=== PATIENT | male | born 1955 | race Two or more races ===

== ENCOUNTER 2024-08-19 08:40 | Inpatient (IN) | payer MEDICARE, SELFPAY ==
[2024-08-18] VITALS (7 sets, daily range): BP systolic 125–170; BP diastolic 61–97; BMI 33.4
[2024-08-18 09:05] LABS: % Basophils 0.8 % (0-2); % Eosinophils 1.8 % (0-6); % Immature Granulocytes 0.5 % (0-0.5); % Lymphocytes 6.1 % (20.5-51.1); % Monocytes 8.2 % (1.7-9.3); % Neutrophils 82.6 % (42.2-75.2); Absolute Basophils 0.1 10^3/uL (0-0.2); Absolute Eosinophils 0.2 10^3/uL (0-0.7); Absolute Immature Granulocytes 0.1 10^3/uL (0-0.05); Absolute Lymphocytes 0.7 10^3/uL (1.2-3.4); Absolute Neutrophils 9.7 10^3/uL (1.4-6.5); Hemoglobin 14.5 g/dL (13.0-18.0); Mean Corp Hgb Conc. 34.5 g/dL (33.0-37.0); Mean Corpuscular Hgb 30.9 pg (27.0-31.0); Mean Corpuscular Volume 89.4 fL (80.0-94.0); Mean Platelet Volume 9.6 fL (7.4-10.4); Nucleated Red Blood Cells % 0 % (-); Platelet Count 256 10^3/uL (130-400); Red Cell Dist. Width 12.6 % (11.5-14.5); White Blood Cell Count 11.7 10^3/uL (4.8-10.8)
[2024-08-18 09:18] LABS: ALT (SGPT) 20 U/L (0-50); AST (SGOT) 25 U/L (17-59); Albumin 4.3 g/dl (3.5-5.0); Alkaline Phosphatase 38 U/L (38-126); Blood Urea Nitrogen 10 mg/dl (9-20); Calcium 9.4 mg/dl (8.4-10.2); Carbon Dioxide 26 mmol/L (22-30); Chloride 108 mmol/L (98-107); Glucose 138 mg/dl (70-99); Potassium 3.7 mmol/L (3.5-5.1); Sodium 141 mmol/L (135-145); Total Bilirubin 2.9 mg/dl (0.2-1.3); Total Protein 7.2 g/dl (6.3-8.2); eGFR > 60.00
[2024-08-18 09:19] LABS: COVID-19 Antigen Negative (Negative)
--- NOTE | 2024-08-18 09:52 | ED.GENMED ---
History of Present Illness
General
Chief Complaint: Breathing Problem
Time Seen by Provider: 08/18/24 09:51
History of Present Illness
History of Present Illness:
TIME OF INITIAL ENCOUNTER: 9:55 AM
HPI: The patient presents with shortness of breath. His lowest room air sat at home on a portable meter was 89%. He states that he had pneumonia about 4 months ago. He went to urgent care earlier and they referred him here for further evaluation.
He is currently afebrile. He has minimal lower extremity edema which is chronic for him. He is not a smoker.
EXAM:
GENERAL: Well appearing in no significant distress
HEENT: Moist oral mucosa
CARDIOVASCULAR: No murmurs, normal heart rate, regular rhythm, No chest wall tenderness
PULMONARY: Minimal increased work of breathing but no significant conversational dyspnea, there is markedly decreased breath sounds with wheeze
ABDOMEN: Soft with no peritoneal signs, no tenderness
NEUROLOGIC: Good strength all extremities, no coordination deficits
PSYCHIATRIC: Appropriate mental status, normal insight and judgement
EXTREMITIES: Nontender, 1+ bilateral lower extremity edema, moves all extremities equally
SKIN: No rash, no lesions
NUMBER AND COMPLEXITY OF PROBLEMS ADDRESSED AT THE ENCOUNTER
� Chronic conditions affecting care: High blood pressure, hyperlipidemia
� Acute Exacerbation and/or Progression of Chronic Illness: This is an acute problem
� Differential Diagnosis includes: Reactive airway disease, bronchitis, pneumonia not seen on x-ray
AMOUNT AND/OR COMPLEXITY OF DATA TO BE REVIEWED AND ANALYZED
� I performed an independent evaluation of and my interpretation is:
EKG: Sinus 89, normal axis, nonspecific ST abnormality
CT:
X-rays: Chest x-ray clear
Laboratory Studies: White count 11.7, hemoglobin normal, total bili 2 with no old to compare but normal transaminases and alk phos .9
Other:
� Review of other/old records: No old records available for review
� Clinical information was obtained by an independent historian: I spoke to his cousin at bedside
� Prescriptions/Medications Considered but not given:
� Further testing considered but not performed:
RISK OF COMPLICATIONS AND/OR MORBIDITY OR MORTALITY OF PATIENT MANAGEMENT
� Social determinants of health affecting care: Lives at home, he is not a smoker
� Discussion with other providers: Dr. Huffman for admission
� Escalation of care including admission/observation vs risk of discharge considered: The patient presents with shortness of breath and is wheezing on exam. He has decreased breath sounds. Will give IV steroids and DuoNebs and
reassess. His room air sats have been hovering around 92%.
ANY OTHER UPDATES:
On reassessment, the patient's wheeze persists and sats still hover around 90 to 92% with a good waveform. Doubt PE as he has marked wheeze that is persisting. I have also tried magnesium.
Phy Exam
Physical Exam
Physical Exam:
See HPI
Scores
Heart Failure Risk
Heart Failure Risk Score: Not Applicable
Course
Orders/Labs/Results
Orders:
Orders
08/18/24 08:49
Electrocardiogram (*1) Urgent
Reason for Study: Shortness of Breath
EKG- Treatment ONCE
Chest [CR Chest - 2 Views ] Urgent
Comment:
Reason For Exam: SOB
08/18/24 08:56
COVID-19 Antigen Urgent
Source: Nasal Swab
Complete Blood Count/With Diff Urgent
Comprehensive Metabolic Panel Urgent
Influenza A+B Rapid Molecular Urgent
STEFANO Source: Nasal Swab
Specimen Description:
08/18/24 10:04
Ipratropium/Albuterol Sulfate [Duoneb] 3 ml INH R NOW STA
Ipratropium/Albuterol Sulfate [Duoneb] 3 ml INH R NOW STA
MethylPREDNISolone PF [Solu-Medrol Pf] 125 mg IV NOW STA
08/18/24 11:37
Ipratropium/Albuterol Sulfate [Duoneb] 3 ml INH R NOW STA
08/18/24 11:39
Magnesium Sulfate 2 Gram/50 ml [Magnesium Sulfate] 2 gram in 50 ml IV NOW
08/18/24 12:09
Admit/Transfer Patient As Directed
Co-Sign Provider:
Level of Care: Observation services
Assign to:: Medical/Surgical
Physician / Group: neftaly
Diagnosis: acute bronchitis
08/18/24 12:10
Code Status As Directed
Resuscitation Status: Full Code
PRN Pain Medication Management As Directed
May give lesser potent ordered pain med per pt: Yes
preference::
Protocol:: Medication orders for pain may be administered in a
manner that supports deferring to patient preference
when the pt is:
- Requesting an ordered lesser potent pain medication.
Least to most potent pain medications are defined
as: acetaminophen < NSAID < tramadol < opioids
(morphine, oxycodone, hydromorphone).
- Requesting a lesser dose of the same medication IF
ORDERED.
- Requesting a less intrusive route of administration
if both routes are prescribed by the provider (PO <
IV).
Abnormal Lab Results
08/18/24
08:56
WBC 11.7 H 10^3/uL
(4.8-10.8)
Abs Immat Gran (auto) 0.1 H 10^3/uL
(0-0.05)
Absolute Neuts (auto) 9.7 H 10^3/uL
(1.4-6.5)
Absolute Lymphs (auto) 0.7 L 10^3/uL
(1.2-3.4)
Absolute Monos (auto) 1.0 H 10^3/uL
(0.1-0.6)
Neutrophils % 82.6 H %
(42.2-75.2)
Lymphocytes % 6.1 L %
(20.5-51.1)
Chloride 108 H mmol/L
(98-107)
Glucose 138 H mg/dl
(70-99)
Total Bilirubin 2.9 H mg/dl
(0.2-1.3)
08/18/24 08:56
08/18/24 08:56
Vital Signs
Initial and Last Documented VS:
Initial Vital Signs
Temp Pulse Resp BP Pulse Ox
36.7 C 102 2 155/97 91
08/18/24 08:46 08/18/24 08:46 08/18/24 08:46 08/18/24 08:46 08/18/24 08:46
Last Documented Vital Signs
Temp Pulse Resp BP Pulse Ox
36.7 C 92 16 170/91 91
08/18/24 08:46 08/18/24 11:17 08/18/24 11:17 08/18/24 11:17 08/18/24 11:17
*Critical Care Note
Total Time (30-74mins, 75-104mins- exclusive of procedures): Not Applicable
ED Attending Note
-
Portions of this chart may have been created with voice recognition software.� Occasional wrong word or��sound alike� substitutions may have occurred due to the inherent limitations of voice recognition software.
Discharge Plan
Departure
Patient Disposition: Admit
Date of Disposition: 08/18/24
Time of Disposition: 11:36
Presentation/result/management discussed w/ accepting MD/DO: Hospitalist
Discharge Problem:
RAD (reactive airway disease) with wheezing
Interventions
Interventions:
*Risk Screen - Suicide Last Done: 08/18/24 08:46
*General Assessment Last Done: 08/18/24 08:46
*Neglect/Abuse Screening Last Done: 08/18/24 10:02
*ED- Fall Risk Assessment Last Done: 08/18/24 10:01
*ED COVID-19 Vaccine History Last Done: 08/18/24 10:01
ED- Cardiac Assessment Last Done: 08/18/24 10:02
ED- Pulmonary Assessment Last Done: 08/18/24 10:02
[2024-08-18] MEDS: DUONEB 3 ML INH ×5 (10:12→19:37)
[2024-08-18] MEDS: SOLU-MEDROL PF 125 MG IV (10:16)
[2024-08-18] MEDS: MAGNESIUM SULFATE 50 IV (11:45)
--- NOTE | 2024-08-18 12:12 | HPS.HSE ---
Family Physician
-
Family Physician: Jaya Aguilar
Chief Complaint
-
acute bronchitis
History of Present Illness
69-year-old male past medical history of mild seasonal allergies, hypertension, hyperlipidemia presenting with shortness of breath, productive cough, chest tightness since yesterday. Had low-grade fever 100.5 yesterday. He had a oxygen saturation
of 89% on home portable meter. Has some nasal congestion. No sore throat. He had pneumonia 4 months ago treated as outpatient. He has some chronic lower extremity edema which is stable.
No history of asthma or COPD or smoking. No alcohol use.
Medical History
Past Medical History
Past Medical History: Reports Other (mild seasonal allergies, hypertension, hyperlipidemia)
Past Surgical History: Reports Other (Rotator cuff surgery)
Social History
Tobacco: Non-smoker
Alcohol: None
Drug: None
Family History
Family History: Not pertinent
Allergies / Home Medications
Allergies reflects when Allergies were last updated in [employer].
Home Medications with original date entered in [employer]
Allergy/Medication List:
Allergies
Allergy/AdvReac Type Severity Reaction Status Date / Time
No Known Allergies Allergy Unverified 08/18/24 08:46
Home Medications
atorvastatin 20 mg tablet 20 mg PO DAILY 08/18/24
lisinopril 10 mg tablet 10 mg PO DAILY 08/18/24
Review of Systems
-
Constitutional: Reports No Symptoms
EENT: Reports No Symptoms
Respiratory: Reports See HPI
Cardiac: Reports No Symptoms
Abdomen/GI: Reports No Symptoms
: Reports No Symptoms
Musculoskeletal: Reports No Symptoms
Skin: Reports No Symptoms
Neurological: Reports No Symptoms
Endocrine: Reports No Symptoms
Hematologic/Lymphatic: Reports No Symptoms
Psych: Reports No Symptoms
Physical Exam
Vital Signs
Vital Signs
Temp Pulse Resp BP Pulse Ox
98.1 F 92 16 170/91 91
08/18/24 08:46 08/18/24 11:17 08/18/24 11:17 08/18/24 11:17 08/18/24 11:17
Physical Exam
General: Well Developed, Well Nourished and No Apparent Distress
HEENT: NormoCephalic, Moist mucous membranes and Atraumatic
Respiratory: Wheezes and Rhonchi
Cardiac: S1/S2 and Regular Rhythm; No Murmur or Rub
GI: Soft, Non Tender, Non Distended and Normal Bowel Sounds; No Organomegaly
Rectal: Deferred by Provider
Musculoskeletal: No Clubbing, No Cyanosis and No Edema
Skin: No Rash
Neuro: Nonfocal/grossly intact
Laboratory Results
-
08/18/24 08:56
08/18/24 08:56
Laboratory Results
Total Bilirubin 2.9 mg/dl (0.2-1.3) H 08/18/24 08:56
AST 25 U/L (17-59) 08/18/24 08:56
ALT 20 U/L (0-50) 08/18/24 08:56
Alkaline Phosphatase 38 U/L (38-126) 08/18/24 08:56
Data Reviewed
-
Lab Data: Labs Reviewed by me
Old Records: Reviewed
Impression/Plan
-
IMPRESSION:
PLAN:
# Acute bronchitis
-Severe rhonchi/wheezing on examination bilaterally
-Patient with leukocytosis, low-grade fever yesterday
- Chest x-ray shows no acute process
- Given DuoNebs, methylprednisolone and magnesium in ER
- Continue DuoNebs every 6 hours, dexamethasone 4 mg every 12, start azithromycin
History of mild seasonal allergies
Essential hypertension
- Continue lisinopril
Hyperlipidemia
- Continue statin
Full code
DVT prophylaxis�heparin
Regular diet
[2024-08-18] MEDS: ZITHROMAX 500 MG PO (14:45)
[2024-08-18] MEDS: DECADRON 4 MG IV (19:52)
[2024-08-18] MEDS: HEPARIN 5000 UNITS SC (19:56)
[2024-08-19 07:45] VITALS: BP 156/80
[2024-08-19] MEDS: STERILE WATER FOR INJECTION 10 ML IV (07:50)
[2024-08-19] MEDS: ROCEPHIN 1000 MG IV (07:50)
[2024-08-19] MEDS: ZITHROMAX 500 MG PO (07:50)
[2024-08-19] MEDS: LIPITOR 20 MG PO (07:51)
[2024-08-19] MEDS: DECADRON 4 MG IV ×2 (07:51→21:42)
[2024-08-19] MEDS: ZESTRIL 10 MG PO (07:51)
[2024-08-19] MEDS: HEPARIN 5000 UNITS SC ×2 (07:51→21:41)
[2024-08-19 07:53] LABS: % Basophils 0.3 % (0-2); % Immature Granulocytes 0.5 % (0-0.5); % Lymphocytes 9.6 % (20.5-51.1); % Monocytes 8.7 % (1.7-9.3); % Neutrophils 80.9 % (42.2-75.2); Absolute Lymphocytes 0.7 10^3/uL (1.2-3.4); Absolute Monocytes 0.6 10^3/uL (0.1-0.6); Hematocrit 40.5 % (39.0-52.0); Hemoglobin 14.1 g/dL (13.0-18.0); Mean Corp Hgb Conc. 34.8 g/dL (33.0-37.0); Mean Corpuscular Hgb 31.4 pg (27.0-31.0); Mean Corpuscular Volume 90.2 fL (80.0-94.0); Mean Platelet Volume 10.1 fL (7.4-10.4); Nucleated Red Blood Cells % 0 % (-); Platelet Count 273 10^3/uL (130-400); Red Blood Cell Count 4.49 10^6/uL (4.70-6.10); Red Cell Dist. Width 12.8 % (11.5-14.5); White Blood Cell Count 7.4 10^3/uL (4.8-10.8)
[2024-08-19] MEDS: DUONEB 3 ML INH ×4 (08:18→19:25)
[2024-08-19 08:31] LABS: ALT (SGPT) 19 U/L (0-50); AST (SGOT) 24 U/L (17-59); Alkaline Phosphatase 45 U/L (38-126); Blood Urea Nitrogen 17 mg/dl (9-20); Calcium 8.9 mg/dl (8.4-10.2); Carbon Dioxide 22 mmol/L (22-30); Chloride 110 mmol/L (98-107); Estimated Creatinine Clearance 103 ml/min; Glucose 139 mg/dl (70-99); Potassium 4.4 mmol/L (3.5-5.1); Sodium 140 mmol/L (135-145); Total Bilirubin 1.4 mg/dl (0.2-1.3); Total Protein 6.5 g/dl (6.3-8.2); eGFR > 60.00
--- NOTE | 2024-08-19 10:04 | W.PN.HOSP.TC ---
Today's Communication/Plan
-
change to inpt level of care
consult pulmonary
add insulin
increase lisinopril
add Rocephin
check RSV
Order blood culture
Assessment / Plan
Assessment / Plan
Physical Exam
General: Well Developed, Well Nourished and No Apparent Distress
HEENT: NormoCephalic, Moist mucous membranes and Atraumatic
Respiratory: Wheezes and Rhonchi
Cardiac: S1/S2 and Regular Rhythm; No Murmur or Rub
GI: Soft, Non Tender, Non Distended and Normal Bowel Sounds;
Rectal: no bleeding
Musculoskeletal: No Clubbing, No Cyanosis and No Edema
Skin: No Rash
Neuro: AAOX3. Nonfocal/grossly intact
Psych: calm
# Acute bronchitis
Asthma like presentation. No hx of asthma or tobacco use
-Expiratory wheezing on examination bilaterally
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
- Chest x-ray shows no acute process
Negative flu & COVID
EKG NSR
- c/w systemic steroid and Nebs
Added insulin coverage and Rocephin
order blood culture
Consult pulmonary
# History of mild seasonal allergies
Essential hypertension
uncontrolled, likely due to acute illness/ steroid
- Continue lisinopril but increase dose to BID
Hyperlipidemia
- Continue statin
Full code
DVT prophylaxis�heparin
Regular diet
Total time spent to see the patient, examine the patient, review data and lab results, discuss treatment plan with patient, nursing staff around 55 minutes
Anticipated Discharge: > 48 hours
Subjective/Interval History
-
Date of Service: August 19, 2024
Still cough and wheezes
Objective Data
-
Labs:
Laboratory Results
08/19/24
06:50
WBC 7.4
Hgb 14.1
Hct 40.5
Plt Count 273
Sodium 140
Potassium 4.4
Chloride 110 H
Carbon Dioxide 22
BUN 17
Creatinine 0.8
Glucose 139 H
Calcium 8.9
Total Bilirubin 1.4 H D
AST 24
ALT 19
Alkaline Phosphatase 45
Vital Signs:
Vital Signs
Temp Pulse Resp BP Pulse Ox
98.1 F 64 18 156/80 93
08/19/24 07:45 08/19/24 08:21 08/19/24 08:21 08/19/24 07:51 08/19/24 08:21
I&O
08/18/24 08/19/24 08/20/24
06:59 06:59 06:59
Intake Total 240 / 240
Balance 240 / 240
[2024-08-19 11:48] LABS: Glucose - Point of Care 136 mg/dl (70-99)
[2024-08-19] MEDS: NOVOLOG FLEXPEN-MODERATE RESISTANCE SC ×2 (12:00→17:01)
--- NOTE | 2024-08-19 12:50 | CON.PUL ---
Consultation
Consultation Request
Date/Time Consultation Requested: 08/19/2024839
Date/Time Consultation Performed: 08/19/2024 - 1144
Requesting Provider: Dr. Galvan
Performing Provider: Dr. Torres
Reason for Consultation: SOB/wheezing
Medical History
-
Chief Complaint: SOB + cough
History of Present Illness:
69-year-old male non-smoker with a past medical history of seasonal allergies, hyperlipidemia + hypertension who presented with SOB + cough. Patient has been feeling short of breath at rest. He had gone to urgent care and they directed him to the
ER. 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 At home his SaO2 was 89% on a portable oximeter. He says he has had pneumonia 4 months ago that was treated as an outpatient. In the ER he was afebrile to 98.1 �F, pulse rate 102, respiratory rate
23, BP 155/97 and saturating 91% on room air. Labs showed mild leukocytosis to 11.7, absolute eosinophil count 200, T. bili 2.9, and COVID-19 antigen negative. Flu swab negative, RSV swab negative and blood cultures collected. CXR was normal. In
the ER he was given 125 mg Solu-Medrol, DuoNebs, 4 mg Decadron, and azithromycin. He was admitted to the hospitalist service, started on Decadron, continued on azithromycin with ceftriaxone added, and pulmonary service now consulted for additional
management/recommendations.
When I saw the patient, he was resting in bed in no acute distress, currently on 2 L/min nasal cannula breathing comfortably. Patient's , Tammy, at bedside. All questions were answered. 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
sitting for approximately 6 hours a day. 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 He otherwise denies any recent car rides or plane trips. No personal history of a DVT/PE nor does he have a family history of VTE. No personal history of malignancy.
Denies lower extremity swelling or pain. He is a never smoker. He still feels short of breath and hears himself wheezing at times. Currently denies chest pain, LOREDO, nausea, fevers or chills.
PMHx: Seasonal allergies, hypertension, hyperlipidemia
PSHx: Rotator cuff surgery
Past Medical History
Past Medical History: Other (Above as per HPI)
Past Surgical History: Other (Above as per HPI)
Social History
Tobacco: Non-smoker
Alcohol: None
Drug: None
Family History
Family History: Reviewed & Not Pertinent
Allergies / Home Medications
Allergies
Allergy/AdvReac Type Severity Reaction Status Date / Time
No Known Allergies Allergy Unverified 08/18/24 08:46
Home Medications
�Medication �Instructions �Recorded �Confirmed �Last Taken �Type
atorvastatin 20 mg tablet 20 mg PO DAILY High Cholesterol 08/18/24 08/18/24 08/17/24 History
lisinopril 10 mg tablet 10 mg PO DAILY Blood Pressure 08/18/24 08/18/24 08/17/24 History
Review of Systems
-
History Source: Patient
All other systems: Negative unless noted
Vitals / Labs / Diagnostic Testing
Vital Signs
Temp Pulse Resp BP Pulse Ox
98.1 F 64 18 156/80 93
08/19/24 07:45 08/19/24 08:21 08/19/24 08:21 08/19/24 07:51 08/19/24 08:21
Lab Data
08/19/24 06:50
08/19/24 06:50
Microbiology
08/18/24 08:56 Nasal Swab Influenza Types A & B (JOANNA) - Final
Negative for Influenza A & B, NAAT
Negative results must be combined with clinical observations
and patient history.
Nucleic Acid Amplification test (NAAT)performed on the
[employer] platform.
Diagnostic Testing:
Physical Exam
-
HEENT: Normocephalic, Anicteric, Moist Mucous Membranes and Other (Thick neck)
Cardiovascular: S1/S2 and Peripheral Edema (Trace lower extremity edema bilaterally)
Respiratory: Wheeze ([place] upon expiration bilaterally), Rales ([place] bilaterally) and Rhonchi (negative)
GI: Soft, Distended (Abdominal obesity), Non Tender and Normal Bowel Sounds
Neurology: AO x 3 and Tremors (n)
Skin: Warm and Dry
General: Respiratory Distress (n), Comfortable, Fever (n) and Chills (n)
Assessment
-
Assessment: 69-year-old male non-smoker with a past medical history of seasonal allergies, hyperlipidemia + hypertension who presented with SOB + cough. Patient has been feeling short of breath at rest. He had gone to urgent care and they
directed him to the ER. 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 At home his SaO2 was 89% on a portable oximeter. He says he has had pneumonia 4 months ago that was treated as an outpatient. In the ER he was afebrile to 98.1 �F, pulse rate
102, respiratory rate 23, BP 155/97 and saturating 91% on room air. Labs showed mild leukocytosis to 11.7, absolute eosinophil count 200, T. bili 2.9, and COVID-19 antigen negative. Flu swab negative, RSV swab negative and blood cultures
collected. CXR was normal. In the ER he was given 125 mg Solu-Medrol, DuoNebs, 4 mg Decadron, and azithromycin. He was admitted to the hospitalist service, started on Decadron, continued on azithromycin with ceftriaxone added, and pulmonary
service now consulted for additional management/recommendations.
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
Impression:
#Acute hypoxic respiratory failure as of now likely due to asthmatic bronchitis; given clear CXR, acute PE on differential although this is low probability (Wells score: 1.3% chance)
#Elevated T. bili
#Hypertension
#Hyperlipidemia
#Obesity (BMI: 33.4)
#Seasonal allergies
Plan:
- Patient's been feeling more SOB with a low-grade fever prior to arrival with wheezing; reportedly he had pneumonia 4 months prior and was treated as an outpatient
- CXR here on 08/18/2024 is clear with no evidence of pneumonia
- He has been hypoxic since admission with intermittent requirements of supplemental O2 between 1-2 L/min
- Maintain SpO2 >90-94% with supplemental O2 as needed
- Would check an ambulatory pulse oximetry prior to discharge
- Continue DuoNebs QID
- Empirically continue ceftriaxone + Zithromax in addition to Decadron 4 mg IV q12hr, reducing steroids as he clinically improves
- prn nebulized bronchodilators - not currently bronchospastic
- If his SOB + hypoxia persists then would check a CT chest, possibly a CTA although I have low suspicion for an acute PE; check lower extremity duplex for now
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
- Incentive spirometer encouraged q1hr while awake
- Replete electrolytes with K>4, Mg>2
- Trend H/H and transfuse if needed to keep Hb>7g/dL; keep plt>20k, unless there is concern for bleeding then keep plt>50k
- Maintain euglycemia with goal BG >100 and <180
- DVT ppx: HSQ --> would raise to 5000 units q8hr
Pulmonary service will continue to follow along. Outpatient pulmonary office follow-up will be arranged for symptom monitoring, full PFTs and possibly 6MWT
Data:
CXR 08/18/2024: No acute cardiopulmonary abnormality.
Total time spent today was 58 minutes for this encounter. Time includes reviewing laboratory test/imaging results, reviewing pertinent medical records, obtaining and reviewing medical history, performing an appropriate exam, ordering medications,
tests and procedures. Time also includes documentation of this encounter, coordinating patient care and communicating with other healthcare professionals. Total time does not include separately billed tests performed on this date of service.
[2024-08-19 15:15] VITALS: BP 131/68
[2024-08-19 16:54] LABS: Glucose - Point of Care 149 mg/dl (70-99)
[2024-08-19 21:47] LABS: Glucose - Point of Care 148 mg/dl (70-99)
[2024-08-19 23:40] VITALS: BP 123/60
[2024-08-20 07:05] VITALS: BP 134/79
[2024-08-20 07:22] LABS: Glucose - Point of Care 124 mg/dl (70-99)
[2024-08-20] MEDS: NOVOLOG FLEXPEN-MODERATE RESISTANCE SC ×2 (07:30→12:00)
[2024-08-20] MEDS: DUONEB 3 ML INH ×4 (08:55→19:28)
[2024-08-20] MEDS: DECADRON 4 MG IV (09:24)
[2024-08-20] MEDS: HEPARIN 5000 UNITS SC ×2 (09:25→20:08)
[2024-08-20] MEDS: ZITHROMAX 500 MG PO (09:26)
[2024-08-20] MEDS: ZESTRIL 10 MG PO (09:26)
[2024-08-20] MEDS: LIPITOR 20 MG PO (09:27)
[2024-08-20] MEDS: ROCEPHIN 1000 MG IV (09:28)
[2024-08-20] MEDS: STERILE WATER FOR INJECTION 10 ML IV (09:28)
--- NOTE | 2024-08-20 09:53 | W.PN.PUL3 ---
Today's Communication / Plan
-
SOB/hypoxia ongoing, possibly related to RLD/BMI, check bedside spirometry
Check ECHO as well for baseline, never had study
Transition IV steroids to PO course
Check PCT, if negative stop abx
Check D-dimer
OP Pulm/sleep FU recommended
Can assess for d/c planning if improved in next 24 hours
Assessment
-
69-year-old male non-smoker with a past medical history of seasonal allergies, hyperlipidemia + hypertension who presented with SOB + cough. Patient has been feeling short of breath at rest. He had gone to urgent care and they directed him to the
ER. Had a low-grade fever to 100.5 �F 1 day [employer]. At home his SaO2 was 89% on a portable oximeter. He says he has had pneumonia 4 months ago that was treated as an outpatient. In the ER he was afebrile to 98.1 �F, pulse rate 102, respiratory rate
23, BP 155/97 and saturating 91% on room air. Labs showed mild leukocytosis to 11.7, absolute eosinophil count 200, T. bili 2.9, and COVID-19 antigen negative. Flu swab negative, RSV swab negative and blood cultures collected. CXR was normal. In
the ER he was given 125 mg Solu-Medrol, DuoNebs, 4 mg Decadron, and azithromycin. He was admitted to the hospitalist service, started on Decadron, continued on azithromycin with ceftriaxone added, and pulmonary service now consulted for additional
management/recommendations.
Acute hypoxic respiratory failure as of now likely due to asthmatic bronchitis; given clear CXR, acute PE on differential although this is low probability (Wells score: 1.3% chance)
Elevated T. bili
SOB
Chronic conditions [employer]:
Hypertension
Hyperlipidemia
Obesity (BMI: 33.4)
Seasonal allergies
Plan:
Stable on RA, off O2
Patient's been feeling more SOB with a low-grade fever prior to arrival with wheezing; reportedly he had pneumonia 4 months prior and was treated as an outpatient
CXR here on 08/18/2024 is clear with no evidence of pneumonia
He has been hypoxic since admission with intermittent requirements of supplemental O2 between 1-2 L/min
Suspect related to RLD, obesity, BMI, sedentary lifestyle
Coughing with deep breaths on exam
Incentive spirometry, ambulate
Placed on IV steroids, will transition to PO taper
Denies prior history of lung disease in his life, nonsmoker
Fam hx of asthma in his granddaughters
Continue DuoNebs QID
Check bedside chris
Empirically continue ceftriaxone + Zithromax in addition to Decadron 4 mg IV q12hr, reducing steroids as he clinically improves
Can likely stop abx if no evidence of infection emerges
Check PCT
prn nebulized bronchodilators - not currently bronchospastic
If his SOB + hypoxia persists then would check a CT chest, Lower extremity duplex negative
Check ECHO as well for baseline
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
Check d-dimer
High risk for OSAS, would recommend OP sleep study
OP Fu recommended
Replete electrolytes with K>4, Mg>2
Trend H/H and transfuse if needed to keep Hb>7g/dL; keep plt>20k, unless there is concern for bleeding then keep plt>50k
Maintain euglycemia with goal BG >100 and <180
DVT ppx: HSQ --> would raise to 5000 units q8hr
Pulmonary service will continue to follow along.
Outpatient pulmonary office follow-up will be arranged for symptom monitoring, full PFTs and possibly 6MWT
Data:
CXR 08/18/2024: No acute cardiopulmonary abnormality.
Duplex 08/19/24- No evidence of deep venous thrombosis bilaterally.
Total time spent today was 51 minutes for this encounter. Time includes reviewing laboratory test/imaging results, reviewing pertinent medical records, obtaining and reviewing medical history, performing an appropriate exam, ordering medications,
tests and procedures. Time also includes documentation of this encounter, coordinating patient care and communicating with other healthcare professionals. Total time does not include separately billed tests performed on this date of service.
Subjective Data
-
Date of Service:
Date of Service: August 20, 2024
Chief Complaint: Pulmonary Follow Up
Subjective:
Stable on RA, SOB still with exertion
No new complaints
Does not feel ready to go home
Objective Data
Data Reviewed
Vital Signs / I&O / Oxygen:
Vital Signs
Temp Pulse Resp BP Pulse Ox
97.7 F 64 19 134/79 93
08/20/24 07:05 08/20/24 09:26 08/20/24 08:59 08/20/24 09:26 08/20/24 08:59
Intake and Output
08/19/24 08/20/24 08/21/24
06:59 06:59 06:59
Intake Total 240 / 240 1440 / 1440
Balance 240 / 240 1440 / 1440
SaO2 93
Nasal Cannula flow liters per 2
minute
Physical Exam
General: Comfortable and Other (NAD)
HEENT: Normocephalic, Anicteric and Moist Mucous Membranes
Cardiovascular: S1-S2 and Regular Rhythm
Respiratory: Clear and Non-Labored Respirations
GI: Soft, Non Distended and Non Tender
Neurology: Awake, Alert, Oriented and No Motor Deficits
Skin: Warm, Dry and Good Color
Labs/Micro/Reports
Lab Data
08/19/24 06:50
08/19/24 06:50
Microbiology
08/19/24 09:04 Blood/Venous Blood Culture - Preliminary
No Growth in 24 hours- Final report to follow
08/19/24 09:25 Nasal Swab Respiratory Syncytial Virus Ag - Final
Negative for Respiratory Syncytial Virus.
A false negative result may be obtained with a specimen
collected early in the acute phase. If symptoms persist, a
new specimen should be tested.
08/18/24 08:56 Nasal Swab Influenza Types A & B (JOANNA) - Final
Negative for Influenza A & B, NAAT
Negative results must be combined with clinical observations
and patient history.
Nucleic Acid Amplification test (NAAT)performed on the
[employer] platform.
[2024-08-20 11:40] LABS: Glucose - Point of Care 135 mg/dl (70-99)
[2024-08-20 12:11] LABS: Glycohemoglobin (HgbA1c) 5.5 % (4.0-5.6)
--- NOTE | 2024-08-20 13:05 | CM ---
Initial assessment completed. Patient is a 69-year-old male past medical history of mild seasonal allergies, hypertension, hyperlipidemia presenting with shortness of breath, productive cough, chest tightness. Patient on 1L O2, will cont to wean.
Patient resides w/ spouse in a 2STH- 4 steps to enter. Independent in all areas, has a shower chair in the home. No SNF/HC hx reported.
Address, point of contact and insurance verified
PCP: Jaya Aguilar
Pharmacy: [facility]
CM consulted for advanced directive. Discussed w/ patient who is receptive to paperwork and will review w/ spouse.
Plan: Home, no needs
--- NOTE | 2024-08-20 15:14 | W.PN.HOSP.TC ---
Today's Communication/Plan
-
see plan
Assessment / Plan
Assessment / Plan
Impression:
Acute hypoxic respiratory failure due to asthmatic bronchitis
Elevated total bilirubin with normal transaminases
Other conditions:
Essential hypertension
Dyslipidemia
Obesity with BMI of 33 3
Sees neurologist
Plan:
Acute bronchitis
Acute hypoxic respiratory failure likely due to combination of acute asthmatic bronchitis, and restrictive lung disease with BMI of 33.
Chest x-ray on admission with no focal infiltrates.
Low clinical suspicion for thromboembolic disease.
COVID-19, influenza negative.
Improved and weaned off oxygen supplementation.
Lower extremity Doppler negative for DVT.
Echocardiogram with preserved biventricular function with no evidence of pulmonary hypertension.
D-dimer pending.
Continued ceftriaxone/Zithromax
Follow D-dimer
Transition off IV Decadron to oral prednisone taper.
Hopefully discharge over the next 24 hours
Monitor closely off supplemental oxygen.
Outpatient follow-up with pulmonology for PFTs
Elevated total bilirubin trending down
Patient is asymptomatic with no complaints of abdominal pain.
Anticipated Discharge: Within 24 hours
Subjective/Interval History
-
Date of Service: August 20, 2024
Objective Data
-
Vital Signs:
Vital Signs
Temp Pulse Resp BP Pulse Ox
97.7 F 82 16 134/79 93
08/20/24 07:05 08/20/24 11:59 08/20/24 11:59 08/20/24 09:26 08/20/24 11:59
I&O
08/19/24 08/20/24 08/21/24
06:59 06:59 06:59
Intake Total 240 / 240 1440 / 1440
Balance 240 / 240 1440 / 1440
Physical Exam
-
General: Well Developed and No Apparent Distress
HEENT: Normocephalic, Atraumatic and Moist Mucous Membranes
Respiratory: Clear to Auscultation
Cardiac: Regular Rhythm and S1/S2; Negative Murmur, Rub or Gallop
GI: Soft, Nontender, Nondistended and Normal Bowel Sounds; Negative Organomegaly
Rectal: Deferred by Provider
Musculoskeletal: No Clubbing, No Cyanosis and No Edema
Skin: Negative Rash
Neuro: Nonfocal/Grossly Intact
[2024-08-20 15:20] VITALS: BP 139/70
[2024-08-20 16:49] LABS: Glucose - Point of Care 153 mg/dl (70-99)
[2024-08-20] MEDS: NOVOLOG FLEXPEN-MODERATE RESISTANCE 1 UNITS SC (17:30)
[2024-08-20] MEDS: ROBITUSSIN DM 10 ML PO (21:37)
[2024-08-20 21:43] LABS: Glucose - Point of Care 132 mg/dl (70-99)
[2024-08-20 22:00] VITALS: O2SAT 90; O2SAT 91
[2024-08-21] VITALS: BP 142/81
[2024-08-21 07:30] VITALS: BP 130/69
[2024-08-21 07:46] LABS: Procalcitonin < 0.05 ng/ml (0.0-0.25)
[2024-08-21] MEDS: DUONEB 3 ML INH ×2 (07:56→11:38)
[2024-08-21] MEDS: STERILE WATER FOR INJECTION 10 ML IV (08:23)
[2024-08-21] MEDS: ROCEPHIN 1000 MG IV (08:23)
[2024-08-21] MEDS: HEPARIN 5000 UNITS SC (08:23)
[2024-08-21] MEDS: ZITHROMAX 500 MG PO (08:24)
[2024-08-21] MEDS: LIPITOR 20 MG PO (08:24)
[2024-08-21] MEDS: DELTASONE 40 MG PO (08:24)
[2024-08-21] MEDS: ZESTRIL 10 MG PO (08:24)
[2024-08-21 08:32] LABS: D-Dimer < 0.27 ug/mlFEU (0.00-0.50)
[2024-08-21] MEDS: NOVOLOG FLEXPEN-MODERATE RESISTANCE SC ×2 (08:35→12:15)
[2024-08-21 08:36] LABS: Glucose - Point of Care 90 mg/dl (70-99)
--- NOTE | 2024-08-21 09:39 | W.PN.PUL3 ---
Today's Communication / Plan
-
He reports that no treatment thus far has been effective at treating his SOB--I will d/c nebs, steroids, abx
D-dimer, PCT, chris, echo negative thus far
I do not think a CT would be warranted which I explained to patient, but could be pursued as OP
He was concerned about his O2 but this was not demonstrated while inpatient, he maintained 90-91% on walk testing yesterday, will check formal 6MWT
SOB is likely related to deconditioning, atelectasis, BMI, sedentary lifestyle
IS effort showing <750mL effort, when pushed to perform over 2L, began coughing -- I have encouraged him to undergo more rehab/walking/exercise
Discharge planning per team
We discussed further w/u as OP
Assessment
-
69-year-old male non-smoker with a past medical history of seasonal allergies, hyperlipidemia + hypertension who presented with SOB + cough. Patient has been feeling short of breath at rest. He had gone to urgent care and they directed him to the
ER. Had a low-grade fever to 100.5 �F 1 day [employer]. At home his SaO2 was 89% on a portable oximeter. He says he has had pneumonia 4 months ago that was treated as an outpatient. In the ER he was afebrile to 98.1 �F, pulse rate 102, respiratory rate
23, BP 155/97 and saturating 91% on room air. Labs showed mild leukocytosis to 11.7, absolute eosinophil count 200, T. bili 2.9, and COVID-19 antigen negative. Flu swab negative, RSV swab negative and blood cultures collected. CXR was normal. In
the ER he was given 125 mg Solu-Medrol, DuoNebs, 4 mg Decadron, and azithromycin. He was admitted to the hospitalist service, started on Decadron, continued on azithromycin with ceftriaxone added, and pulmonary service now consulted for additional
management/recommendations.
Acute hypoxic respiratory failure suspect atelectasis, RLD, poor effort
Elevated T. bili
SOB
Chronic conditions [employer]:
Hypertension
Hyperlipidemia
Obesity (BMI: 33.4)
Seasonal allergies
Plan:
Stable on RA, off O2
Patient's been feeling more SOB with a low-grade fever prior to arrival with wheezing; reportedly he had pneumonia 4 months prior and was treated as an outpatient
CXR here on 08/18/2024 is clear with no evidence of pneumonia
Hypoxemia resolved, 89% on RA reportedly at home, but this has not been demonstrated while inpatient, ambulated and remained at 90-91% on RA
Suspect related to RLD, obesity, BMI, sedentary lifestyle
Coughing with deep breaths on exam
Incentive spirometry, his effort is very poor <750mL-- coughing noted when he pushes himself to reach 2L
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
Placed on IV steroids, will transition to PO taper
He does not feel improved with use of prednisone or inhalers--less likely treating asthma or COPD
Stop steroids
Denies prior history of lung disease in his life, nonsmoker
Fam hx of asthma in his granddaughters
DuoNebs QID not helping-stop
Check bedside chris- normal
Empirically continue ceftriaxone + Zithromax in addition to Decadron 4 mg IV q12hr, reducing steroids as he clinically improves
Can likely stop abx if no evidence of infection emerges
PCT -- neg, will stop abx 08/21
prn nebulized bronchodilators - not currently bronchospastic
Lower extremity duplex negative
Check ECHO as well for baseline -- hyperdynamic EF, but otherwise negative
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
D-dimer Neg-- do not foresee a reason for CT imaging
Check 6MWT today as he is concerned about his O2
High risk for OSAS, would recommend OP sleep study
OP Fu recommended
Replete electrolytes with K>4, Mg>2
Trend H/H and transfuse if needed to keep Hb>7g/dL; keep plt>20k, unless there is concern for bleeding then keep plt>50k
Maintain euglycemia with goal BG >100 and <180
DVT ppx: HSQ --> would raise to 5000 units q8hr
Pulmonary service will continue to follow along.
Outpatient pulmonary office follow-up will be arranged for symptom monitoring, full PFTs and possibly 6MWT
Data:
CXR 08/18/2024: No acute cardiopulmonary abnormality.
Duplex 08/19/24- No evidence of deep venous thrombosis bilaterally.
Spirometry 08/20/24- FEV1 2.28L 89%, FVC 3.68L 90%, ratio 76 (normal)
Total time spent today was 52 minutes for this encounter. Time includes reviewing laboratory test/imaging results, reviewing pertinent medical records, obtaining and reviewing medical history, performing an appropriate exam, ordering medications,
tests and procedures. Time also includes documentation of this encounter, coordinating patient care and communicating with other healthcare professionals. Total time does not include separately billed tests performed on this date of service.
Subjective Data
-
Date of Service:
Date of Service: August 21, 2024
Chief Complaint: Pulmonary Follow Up
Subjective:
Still has SOB despite all testing remaining negative
Coughing at times
IS effort about 750mL, when pushed to 2L coughing is induced
Stable on RA
Objective Data
Data Reviewed
Vital Signs / I&O / Oxygen:
Vital Signs
Temp Pulse Resp BP Pulse Ox
97.9 F 73 16 130/69 93
08/21/24 07:30 08/21/24 08:24 08/21/24 07:59 08/21/24 08:24 08/21/24 07:59
Intake and Output
08/20/24 08/21/24 08/22/24
06:59 06:59 06:59
Intake Total 1440 / 1440 600 / 600
Balance 1440 / 1440 600 / 600
SaO2 93
Nasal Cannula flow liters per 2
minute
Physical Exam
General: Comfortable and Other (NAD)
HEENT: Normocephalic, Anicteric and Moist Mucous Membranes
Cardiovascular: S1-S2 and Regular Rhythm
Respiratory: Clear and Non-Labored Respirations
GI: Soft, Non Distended and Non Tender
Neurology: Awake, Alert, Oriented and No Motor Deficits
Skin: Warm, Dry and Good Color
Labs/Micro/Reports
Lab Data
08/19/24 06:50
08/19/24 06:50
Microbiology
08/19/24 09:04 Blood/Venous Blood Culture - Preliminary
No Growth in 48 hours- Final report to follow
08/19/24 09:25 Nasal Swab Respiratory Syncytial Virus Ag - Final
Negative for Respiratory Syncytial Virus.
A false negative result may be obtained with a specimen
collected early in the acute phase. If symptoms persist, a
new specimen should be tested.
08/18/24 08:56 Nasal Swab Influenza Types A & B (JOANNA) - Final
Negative for Influenza A & B, NAAT
Negative results must be combined with clinical observations
and patient history.
Nucleic Acid Amplification test (NAAT)performed on the
[employer] platform.
[2024-08-21 12:05] LABS: Glucose - Point of Care 108 mg/dl (70-99)
[2024-08-21 15:32] VITALS: BP 153/77
--- NOTE | 2024-08-21 15:39 | W.DS.TRANS ---
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
-
Discharge Instructions:
Discharge Diagnosis/Procedures Acute bronchitis
Diet Regular
Instructions:
Stand-Alone Forms:
Changes to Home Medications: No
Discharge Medications:
DC Medications w/original date entered in [employer]
atorvastatin 20 mg tablet 20 mg PO DAILY High Cholesterol 08/18/24
lisinopril 10 mg tablet 10 mg PO DAILY Blood Pressure 08/18/24
Home Medication Changes
Pending Results: No
--- NOTE | 2024-08-21 15:50 | CM ---
Patient stable for d/c today
Met w/ patient bedside, agreeable to d/c
IMM verbally reviewed, copy given to patient, copy on chart
Spouse will transport
No CM needs identified
Plan: Home, no needs
== END 2024-08-21 16:46 | disposition home or self-care (01) | DRG 202 ==
LOC: 4 EAST ACU 08:40
PROVIDERS: Internal Medicine; Student in an Organized Health Care Education/Training Program; ADMITTING PHYSICIAN Hospitalist; ATTENDING PHYSICIAN Internal Medicine; CONSULT PHYSICIAN Internal Medicine Critical Care Medicine; EMERGENCY PHYSICIAN Emergency Medicine; FAMILY PHYSICIAN Family Medicine
DX: J20.8 Acute bronchitis due to other specified organisms (principal); J98.11 Atelectasis; J45.909 Unspecified asthma, uncomplicated; R60.0 Localized edema; E78.5 Hyperlipidemia, unspecified; R09.02 Hypoxemia; R06.89 Other abnormalities of breathing; I10 Essential (primary) hypertension; D72.829 Elevated white blood cell count, unspecified; E66.9 Obesity, unspecified; Z68.33 Body mass index [BMI] 33.0-33.9, adult; Z87.01 Personal history of pneumonia (recurrent)
CPT/HCPCS: 71046; 80053; 82962; 83036; 84145; 85025; 85379; 87040; 87502; 87807; 87811; 93005; 93306; 93970; 94010; 94640; 96365; 96375; 99285

== ENCOUNTER → 2024-12-18 10:42 | Outpatient (REF) | payer MEDICARE, SELFPAY | LOC: DHSLP 10:42 | PROVIDERS: ATTENDING PHYSICIAN Internal Medicine Critical Care Medicine; FAMILY PHYSICIAN Family Medicine | DX: G47.33 Obstructive sleep apnea (adult) (pediatric) (principal) | CPT/HCPCS: 95800 ==